=== PATIENT | male | born 1960 | race Caucasian/White ===

== ENCOUNTER 2020-06-11 20:07 | Emergency (ER) | payer OTHER | END 2020-06-11 20:40 | disposition home or self-care (01) | LOC: EDH 20:07 | DX: L03.111 Cellulitis of right axilla (principal); G89.29 Other chronic pain; M25.511 Pain in right shoulder; I10 Essential (primary) hypertension ==

== ENCOUNTER 2021-09-29 17:33 | Inpatient (IN) | payer OTHER ==
[~2021-09-29] VITALS: Ht 180.3 cm; Wt 96.7 kg
[2021-09-29] MEDS ORDERED: FUROSEMIDE 40MG VIAL IV ONE (18:00)
[2021-09-29] MEDS ORDERED: ALBUTEROL 0.083% 2.5 MG/3 ML INH IH ONE (18:00)
[2021-09-29] MEDS ORDERED: IPRATROPIUM/ALBUTEROL SULFATE 3 ML SOLUTION IH ONE (18:00)
[2021-09-29 18:33] LABS: BASOPHILS % (AUTO) 1.5 % (0.0-5.0); EOSINOPHILS % (AUTO) 3.4 % (0.0-8.0); MEAN CORPUSCULAR HEMOGLOBIN 26.9 pg (27.0-33.0); MEAN CORPUSCULAR HGB CONC 30.7 g/dL (32.0-36.0); MEAN CORPUSCULAR VOLUME 87.5 fL (79-99); MONOCYTES % (AUTO) 7.3 % (3.0-13.0); NEUTROPHILS % (AUTO) 70.6 % (40.0-77.0); PLATELET COUNT (AUTO) 81 K/uL (130-400); RED CELL DISTRIBUTION WIDTH 21.8 % (11.0-15.5); WHITE BLOOD COUNT (AUTO) 4.1 K/uL (4.8-10.8)
[2021-09-29 18:53] LABS: CREATININE 0.7 mg/dL (0.5-1.5); POTASSIUM 3.5 mmol/L (3.5-5.1)
[2021-09-29 18:58] LABS: B-TYPE NATRIURETIC PEPTIDE 150 pg/mL (0-100)
[2021-09-29] MEDS ORDERED: HYDROCODONE/ACETAMINOPHEN 10/325 MG TAB PO ONE (19:00)
[2021-09-29 19:02] LABS: ALBUMIN 2.6 g/dL (3.5-5.0); BILIRUBIN,TOTAL 3.1 mg/dL (0.2-1.0); CRP QUANTITATIVE 11.4 mg/L (0.00-9.0)
[2021-09-29 20:24] LABS: APPEARANCE,URINE Clear (CLEAR); BILIRUBIN,URINE Negative (NEGATIVE); COLOR,URINE Yellow (YELLOW); GLUCOSE, URINE (UA) Negative (NEGATIVE); KETONES,URINE Negative (NEGATIVE); LEUKOCYTE ESTERASE ,URINE Negative (NEGATIVE); NITRATE,URINE Negative (NEGATIVE); OCCULT BLOOD,URINE Negative (NEGATIVE); PROTEIN,URINE Negative (NEGATIVE)
[2021-09-29] MEDS ORDERED: CEFTRIAXONE 1G VIAL IVP ONE (20:30)
[2021-09-29] MEDS ORDERED: PHENYTOIN 100MG (50MG/ML) INJ 100 MG/2 ML ML IV SCH (20:30)
[2021-09-29] MEDS ORDERED: PHENYTOIN SODIUM 250MG (50 MG/ML) VIAL ONE (20:59)
[2021-09-29 21:37] LABS: AMPHET/METH SCREEN,URINE NEGATIVE (NEGATIVE); BARBITURATE SCREEN, URINE NEGATIVE (NEGATIVE); BENZODIAZEPINES SCREEN,URINE POSITIVE (NEGATIVE); CANNABINOID SCREEN,URINE POSITIVE (NEGATIVE); COCAINE SCREEN,URINE NEGATIVE (NEGATIVE); OPIATE SCREEN,URINE POSITIVE (NEGATIVE); PHENCYCLIDINE SCREEN,URINE NEGATIVE (NEGATIVE)
[2021-09-29] MEDS: CEFTRIAXONE 1G VIAL IV SCH (22:00)
[2021-09-29] MEDS ORDERED: ONDANSETRON 4MG INJ IV PRN (22:00)
[2021-09-29] MEDS: DOXYCYCLINE 100MG+NS 250ML 250 ML IV SCH (22:54)
[2021-09-29] MEDS ORDERED: SODIUM CHLORIDE 3% FOR INHALATION 4 ML/AMP VIAL.NEB IH ONE (23:00)
[2021-09-29] MEDS: FENTANYL CITRATE PF 50 MCG/1 ML 2ML VIAL IVP PRN (23:30)
[2021-09-30] MEDS: IPRATROPIUM/ALBUTEROL SULFATE 3 ML SOLUTION IH SCH ×3 (00:05→11:56)
[2021-09-30] MEDS: FENTANYL CITRATE PF 50 MCG/1 ML 2ML VIAL IVP PRN ×2 (02:35→06:32)
[2021-09-30 08:16] LABS: BASOPHILS % (AUTO) 1.2 % (0.0-5.0); EOSINOPHILS % (AUTO) 1.9 % (0.0-8.0); HEMATOCRIT 28.5 % (42-54); LYMPHOCYTES % (AUTO) 17.6 % (21.0-51.0); MEAN CORPUSCULAR HEMOGLOBIN 26.6 pg (27.0-33.0); MEAN CORPUSCULAR HGB CONC 30.5 g/dL (32.0-36.0); MEAN CORPUSCULAR VOLUME 87.2 fL (79-99); MONOCYTES % (AUTO) 8.4 % (3.0-13.0); NEUTROPHILS % (AUTO) 70.3 % (40.0-77.0); PLATELET COUNT (AUTO) 69 K/uL (130-400); RED BLOOD CELL COUNT(AUTO) 3.27 MIL/uL (4.50-6.20); RED CELL DISTRIBUTION WIDTH 22.4 % (11.0-15.5); WHITE BLOOD COUNT (AUTO) 3.2 K/uL (4.8-10.8)
[2021-09-30 08:23] LABS: CREATININE 0.8 mg/dL (0.5-1.5); PHENYTOIN (DILANTIN) 1.3 mcg/mL (10.0-20.0); PHOSPHORUS 2.9 mg/dL (2.5-4.9); POTASSIUM 3.3 mmol/L (3.5-5.1)
[2021-09-30 08:26] LABS: % IRON SATURATION 21.9 % (30-44)
[2021-09-30] MEDS: FAMOTIDINE 20MG TAB PO SCH ×2 (08:43→20:38)
[2021-09-30] MEDS: FUROSEMIDE 40MG VIAL IVP SCH ×2 (08:43→20:37)
[2021-09-30] MEDS: HYDROMORPHONE 0.5 MG SYG (0.5MG/0.5ML) IVP PRN ×5 (08:45→22:01)
[2021-09-30] MEDS: PHENYTOIN 100 MG/4 ML UDCUP PO SCH ×3 (09:00→20:38)
[2021-09-30 09:13] LABS: THYROID STIMULATING HORMONE 2.16 uIU/mL (0.36-3.74)
[2021-09-30 09:30] VITALS: BP 153/77
[2021-09-30] MEDS: DOXYCYCLINE 100MG+NS 250ML 250 ML IV SCH ×2 (10:00→20:37)
[2021-09-30 11:41] LABS: INR 1.62 (0.85-1.15); PROTHROMBIN TIME 16.9 SEC (9.6-11.6)
[2021-09-30 11:43] LABS: PARTIAL THROMBOPLASTIN TIME 34.6 SEC (26.3-35.5)
[2021-09-30 11:46] VITALS: BP 135/87
[2021-09-30] MEDS ORDERED: IPRATROPIUM/ALBUTEROL SULFATE 3 ML SOLUTION IH PRN (12:30)
[2021-09-30 16:00] VITALS: BP 141/78
[2021-09-30 20:00] VITALS: BP 123/73
[2021-09-30] MEDS: CEFTRIAXONE 1G VIAL IV SCH (20:37)
[2021-09-30] MEDS ORDERED: LIDOCAINE HCL-MPF 1% 2ML VIAL IV PRN (21:00)
[2021-09-30] MEDS ORDERED: POTASSIUM CHLORIDE 10% ELIXIR 20 MEQ/15 ML UDCUP PO PRN (21:00)
[2021-09-30] MEDS ORDERED: TRAZODONE HCL 50 MG TAB PO PRN (21:00)
[2021-09-30] MEDS ORDERED: POTASSIUM CHLORIDE 20MEQ/100ML 100 ML IV PRN (21:00)
[2021-09-30] MEDS: KCL 20 MEQ ERTAB PO PRN (21:59)
[2021-10-01] VITALS (14 sets, daily range): BP systolic 102–144; BP diastolic 45–78
[2021-10-01] MEDS: HYDROMORPHONE 0.5 MG SYG (0.5MG/0.5ML) IVP PRN ×5 (02:08→23:26)
[2021-10-01] MEDS ORDERED: CHLORDIAZEPOXIDE HCL 25 MG CAP PO PRN ×2 (07:00)
[2021-10-01] MEDS ORDERED: PHARMACY COMMUNICATION MISC PRN (07:00)
[2021-10-01] MEDS ORDERED: PROMETHAZINE HCL 25 MG TABLET PO PRN (07:00)
[2021-10-01] MEDS: THIAMINE HCL 100 MG, FOLIC ACID 1 MG, M.V.I. IV [ADULT] 10 ML in 0.9%NACL 1000ML 1,000 ML IV SCH (08:35)
[2021-10-01] MEDS ORDERED: ALBUMIN (HUMAN) 25% 200 ML IV ONE (10:30)
[2021-10-01] MEDS: THIAMINE HCL 100 MG/ML 2ML VIAL IM SCH (11:16)
[2021-10-01] MEDS: FUROSEMIDE 40MG VIAL IVP SCH ×2 (11:16→19:22)
[2021-10-01] MEDS: FOLIC ACID 1 MG TABLET PO SCH (11:17)
[2021-10-01] MEDS: MULTIVITAMIN TABLET PO SCH (11:17)
[2021-10-01] MEDS: PHENYTOIN 100 MG/4 ML UDCUP PO SCH ×3 (11:18→19:22)
[2021-10-01] MEDS: DOXYCYCLINE 100MG+NS 250ML 250 ML IV SCH ×2 (11:18→23:25)
[2021-10-01] MEDS: FAMOTIDINE 20MG TAB PO SCH ×2 (11:18→19:22)
[2021-10-01 14:10] LABS: APPEARANCE BODY FLUID CLEAR (CLEAR); COLOR,BODY FLUID YELLOW (LT YELLOW); SPECIMENTYPE,BODY FLUID ASCITES; TOTAL VOLUME,BODY FLUID 9000 mL
[2021-10-01 14:11] LABS: BODY FLUID RBC 618 /cu. mm.; BODY FLUID WBC 149 /cu. mm.
[2021-10-01 14:42] LABS: BF LYMPHOCYTE 23 %; BF MESOTHELIAL 61 %; BF MONOCYTE 7 %
[2021-10-01] MEDS: CEFTRIAXONE 1G VIAL IV SCH (23:25)
[2021-10-02] VITALS: BP 109/59
[2021-10-02 04:00] VITALS: BP 124/64
[2021-10-02] MEDS: HYDROMORPHONE 0.5 MG SYG (0.5MG/0.5ML) IVP PRN ×2 (04:22→10:07)
[2021-10-02 04:57] LABS: HEMATOCRIT 25.2 % (42-54); MEAN CORPUSCULAR HEMOGLOBIN 26.9 pg (27.0-33.0); MEAN CORPUSCULAR HGB CONC 30.2 g/dL (32.0-36.0); PLATELET COUNT (AUTO) 51 K/uL (130-400); RED BLOOD CELL COUNT(AUTO) 2.83 MIL/uL (4.50-6.20); RED CELL DISTRIBUTION WIDTH 23.4 % (11.0-15.5); WHITE BLOOD COUNT (AUTO) 2.4 K/uL (4.8-10.8)
[2021-10-02 05:39] LABS: BASOPHILS % (MANUAL) 4 % (0-2); EOSINOPHILS % (MANUAL) 4 % (1-6); LYMPHOCYTES % (MANUAL) 24 % (22-44); MAN.DIFF COMMENT-IMPRESSION MANUAL DIFFERENTIAL; MONOCYTES % (MANUAL) 8 % (2-9); PLATELET MORPHOLOGY COMMENT SLIGHTLY DECREASED; SEGMENTED NEUTROPHILS % 60 % (40-70)
[2021-10-02 05:46] LABS: ALBUMIN 2.5 g/dL (3.5-5.0); ASPARTATE AMINOTRANSFERASE 21 U/L (10-37); BILIRUBIN,DIRECT 1.2 mg/dL (0.0-0.3); BILIRUBIN,TOTAL 2.7 mg/dL (0.2-1.0); CARBON DIOXIDE 29 mmol/L (21-32); CHLORIDE 105 mmol/L (101-111); CREATININE 0.7 mg/dL (0.5-1.5); GLOMERULAR FILTR. RATE CALC 123 mL/min (>60); GLUCOSE,RANDOM 92 mg/dL (70-105); POTASSIUM 3.2 mmol/L (3.5-5.1); SODIUM SERUM 140 mmol/L (136-145); THYROID STIMULATING HORMONE 3.26 uIU/mL (0.36-3.74); TOTAL PROTEIN, SERUM 6.9 g/dL (6.0-8.3); UREA NITROGEN, BLOOD 8 mg/dL (7-18)
[2021-10-02 05:48] LABS: ALANINE AMINOTRANSFERASE < 6 U/L (12-78)
[2021-10-02] MEDS: KCL 20 MEQ ERTAB PO PRN (06:11)
[2021-10-02 08:00] VITALS: BP 132/68
[2021-10-02] MEDS ORDERED: EPOETIN ALFA-EPBX (NON-ESRD) 10,000 UNIT/ML VIAL SQ SCH (10:00)
[2021-10-02] MEDS ORDERED: IRON SUCROSE COMPLEX 500 MG in 0.9%NACL 50ML 50 ML IV SCH (10:00)
[2021-10-02] MEDS: FOLIC ACID 1 MG TABLET PO SCH (10:05)
[2021-10-02] MEDS: MULTIVITAMIN TABLET PO SCH (10:06)
[2021-10-02] MEDS: THIAMINE HCL 100 MG/ML 2ML VIAL IM SCH (10:06)
[2021-10-02] MEDS: PHENYTOIN 100 MG/4 ML UDCUP PO SCH ×3 (10:10→22:05)
[2021-10-02] MEDS: DOXYCYCLINE 100MG+NS 250ML 250 ML IV SCH ×2 (10:11→22:06)
[2021-10-02] MEDS: FAMOTIDINE 20MG TAB PO SCH ×2 (10:15→22:05)
[2021-10-02] MEDS ORDERED: COMPOUND IV MISC 1 EACH IVSOLN MISC PRN (10:30)
[2021-10-02] MEDS: FUROSEMIDE 20 MG TABLET PO SCH (10:49)
[2021-10-02] MEDS: KCL 20 MEQ ERTAB PO SCH (10:51)
[2021-10-02] MEDS: SPIRONOLACTONE 25 MG TAB PO SCH ×2 (11:37→22:05)
[2021-10-02 12:00] VITALS: BP 135/77
[2021-10-02] MEDS ORDERED: THIA100T91 PO (12:06)
[2021-10-02] MEDS ORDERED: FURO20TA6 PO (12:06)
[2021-10-02] MEDS ORDERED: SPIR25TA6 PO (12:06)
[2021-10-02 12:52] LABS: CREATININE 0.9 mg/dL (0.5-1.5); POTASSIUM 3.5 mmol/L (3.5-5.1)
[2021-10-02] MEDS ORDERED: LACT10SO9 PO (15:30)
[2021-10-02] MEDS ORDERED: RIFA550T PO (15:30)
[2021-10-02] MEDS ORDERED: LACTULOSE 20 GM/30 ML UDCUP PO SCH (16:00)
[2021-10-02] MEDS ORDERED: RIFAXIMIN 550 MG TABLET PO SCH (16:00)
[2021-10-02 22:00] VITALS: BP 147/76
[2021-10-02] MEDS: CEFTRIAXONE 1G VIAL IV SCH (22:05)
[2021-10-03] VITALS: BP 146/69
[2021-10-03 04:00] VITALS: BP 145/61
[2021-10-03] MEDS: THIAMINE HCL 100 MG, FOLIC ACID 1 MG, M.V.I. IV [ADULT] 10 ML in 0.9%NACL 1000ML 1,000 ML IV SCH (07:00)
[2021-10-03] MEDS: MULTIVITAMIN TABLET PO SCH ×2 (09:00→09:22)
[2021-10-03] MEDS: PHENYTOIN 100 MG/4 ML UDCUP PO SCH ×4 (09:00→21:01)
[2021-10-03] MEDS: SPIRONOLACTONE 25 MG TAB PO SCH ×3 (09:00→21:01)
[2021-10-03] MEDS: FOLIC ACID 1 MG TABLET PO SCH ×2 (09:00→09:22)
[2021-10-03] MEDS: FUROSEMIDE 20 MG TABLET PO SCH ×3 (09:00→17:00)
[2021-10-03] MEDS: THIAMINE HCL 100 MG/ML 2ML VIAL IM SCH ×2 (09:00→09:25)
[2021-10-03] MEDS: FAMOTIDINE 20MG TAB PO SCH ×3 (09:00→21:01)
[2021-10-03] MEDS: KCL 20 MEQ ERTAB PO SCH (09:51)
[2021-10-03] MEDS: DOXYCYCLINE 100MG+NS 250ML 250 ML IV SCH ×2 (10:00→22:00)
[2021-10-03] MEDS: CEFTRIAXONE 1G VIAL IV SCH (22:00)
[2021-10-03 23:47] VITALS: BP 165/86
[2021-10-04 04:36] VITALS: BP 145/65
[2021-10-04 08:00] VITALS: BP 160/77
[2021-10-04] MEDS: MULTIVITAMIN TABLET PO SCH (09:00)
[2021-10-04] MEDS: FAMOTIDINE 20MG TAB PO SCH (09:00)
[2021-10-04] MEDS: PHENYTOIN 100 MG/4 ML UDCUP PO SCH ×2 (09:00→14:00)
[2021-10-04] MEDS: FUROSEMIDE 20 MG TABLET PO SCH ×2 (09:00→16:54)
[2021-10-04] MEDS: SPIRONOLACTONE 25 MG TAB PO SCH (09:00)
[2021-10-04] MEDS: KCL 20 MEQ ERTAB PO SCH (10:00)
[2021-10-04] MEDS: DOXYCYCLINE 100MG+NS 250ML 250 ML IV SCH (10:00)
[2021-10-04 12:00] VITALS: BP 151/68
== END 2021-10-04 17:34 | disposition home or self-care (01) | DRG 432 ==
LOC: EDH 17:33 → EDHIP 17:34 → 4CH 09-30 09:45
PROVIDERS: ADMIT Internal Medicine; ATTEND Internal Medicine
PROC: 0W9G3ZZ Drainage of Peritoneal Cavity, Percutaneous Approach (ICD-10-PCS; principal; 2021-10-01)
DX: K74.60 Unspecified cirrhosis of liver (principal); J18.9 Pneumonia, unspecified organism; J90 Pleural effusion, not elsewhere classified; K76.6 Portal hypertension; E87.2 Acidosis; D68.4 Acquired coagulation factor deficiency; M48.50XA Collapsed vertebra, not elsewhere classified, site unspecified, initial encounter for fracture; R18.8 Other ascites; D68.9 Coagulation defect, unspecified; Z20.822 Contact with and (suspected) exposure to COVID-19; D64.9 Anemia, unspecified; D69.6 Thrombocytopenia, unspecified; I10 Essential (primary) hypertension; G40.909 Epilepsy, unspecified, not intractable, without status epilepticus; K72.90 Hepatic failure, unspecified without coma; G89.29 Other chronic pain; F19.10 Other psychoactive substance abuse, uncomplicated; R16.1 Splenomegaly, not elsewhere classified; D50.9 Iron deficiency anemia, unspecified; Z87.891 Personal history of nicotine dependence; Z91.19 Patient's noncompliance with other medical treatment and regimen
CPT/HCPCS: 36415; 49083; 71045; 74176; 76700; 80048; 80053; 80074; 80076; 80185; 80305; 81003; 82140; 82270; 82607; 82728; 82746; 82948; 83540; 83550; 83605; 83615; 83735; 83880; 84100; 84145; 84157; 84439; 84443; 84484; 85025; 85027; 85610; 85730; 86038; 86140; 86215; 86235; 87040; 87071; 87205; 87635; 87804; 89051; 93005; 93970; 94640; 94664; C1729; C9803; G0378; J0696; J1165; J1170; J1756; J1940; J3010; J3411; J3490; J7030; P9046; Q0169